=== PATIENT | female | born 1995 | race Caucasian/White ===

== ENCOUNTER 2017-01-31 18:25 | Emergency (ER) | payer BC ==
[~2017-01-31] VITALS: Ht 165.1 cm; Wt 90.4 kg
[2017-01-31 19:22] LABS: MCH 27.7 PG (29.0-34.0); MCHC 34.2 G/DL (30.0-36.0); MEAN PLAT.VOLUME 11.3 uM^3 (9.5-12.4); PLATELET COUNT 238 K/uL (156-360); RBC DIS.WIDTH-CV 12.4 % (11.8-14.6); RBC DIS.WIDTH-SD 36.4 % (39-53); RED BLOOD COUNT 4.69 M/uL (3.80-5.20); WHITE BLOOD COUNT 10.1 K/uL (4.1-10.2)
[2017-01-31 19:31] LABS: CHLORIDE 105 mEq/L (99-109); POTASSIUM 3.3 mEq/L (3.7-5.4); SODIUM 139 mEq/L (136-147)
[2017-01-31 19:33] LABS: GLUCOSE 117 mg/dL (70-99)
[2017-01-31 19:35] LABS: ANION GAP 11 MEQ/L (2-14)
[2017-01-31 19:38] LABS: UREA NITROGEN (BUN) 8 mg/dL (9-23)
[2017-01-31 19:42] LABS: GFR ESTIMATE (CALCULATED) > 59 mL/min/
[2017-01-31 19:43] LABS: TROP-I INTERPRETATION NEGATIVE; TROPONIN-I < 0.01 ng/mL (0.0-0.30)
[2017-01-31 21:23] LABS: INTERNAL CONTROL VALID? YES; MONOSPOT (MONONUCLEOSIS SEROL) NEGATIVE
[2017-02-01] MEDS ORDERED: NAPROSYN500 MG PO (03:01)
[2017-02-01] MEDS ORDERED: CLEOCIN300 MG PO (03:01)
[2017-02-01 03:31] VITALS: BP 131/74
== END 2017-02-01 03:39 | disposition home or self-care (01) ==
LOC: EME 18:25
DX: R59.0 Localized enlarged lymph nodes (principal); R06.02 Shortness of breath; Z86.711 Personal history of pulmonary embolism; Z86.718 Personal history of other venous thrombosis and embolism; Z88.1 Allergy status to other antibiotic agents; Z88.0 Allergy status to penicillin
CPT/HCPCS: 70491; 71020; 71275; 80048; 84439; 84443; 84481; 84484; 85027; 85379; 86308; 93005; 99281; 99284